=== PATIENT | female | born 1955 | race Caucasian/White ===

== ENCOUNTER → 2016-12-13 | Day surgery (SDC) | payer OTHER ==
[~2016-12-13] MED LIST: ACETAMINOPHEN 1000 MG/100 ML VIAL IV ONE; ACETAMINOPHEN/HYDROcodone 325 MG/5 MG TAB ONE; APREPITANT 40 MG CAP ONE; BACITRACIN IM FOR SOLN 50,000 UNIT VIAL ONE; BUPIVACAINE/EPINEPHRINE 0.25% 50 ML VIAL ONE; GENTAMICIN SULFATE 80 MG/2 ML VIAL ONE; LACTATED RINGER'S 1000 ML INJ 1,000 ML ONE; LIDOCAINE 1%/EPINEPHrine 1:100,000 SOLN 20 ML VIAL ONE; MIDAZOLAM HCL 2 MG/2 ML VIAL ONE; ONDANSETRON HCL 4 MG/2 ML VIAL IV PUSH ONE; PROPOFOL 200 MG/20 ML AMP IV ONE; SODIUM CHLORIDE 0.9% 20 ML VIAL ONE; ceFAZolin INJ 1,000 MG VIAL ONE
--- NOTE | 2016-12-13 09:42 | TN ---
cc: BALDEV BALLARD M.D. DATE OF SURGERY: 12/13/2016 PREOPERATIVE DIAGNOSIS Bilateral breast ptosis and facial aging. PROCEDURE Injection of one syringe of Voluma in the mid-lower face and bilateral circumvertical and horizontal mastopexy. SURGEON Baldev Ballard MD ANESTHESIA LMA general. Also utilized a total of 30 ccs of 1% lidocaine with epinephrine. ESTIMATED BLOOD LOSS Minimal. COMPLICATIONS None. PROCEDURE She was properly consented, marked, anesthetized. The skin was sterilized with Betadine solution and sterile draping applied. The markings were as follows, the NAC was set at 20-1/2 cm from sternal notch, 38 mm areolar diameter. I proceeded and performed the proper injection of the local anesthesia, 1% lidocaine with epinephrine. The skin was sterilized with Betadine solution and sterile draping applied. Before that I applied 1 cc of Voluma on the marionette lines, nasolabial folds and cheek areas. With this I sat the patient up and performed a tailor tack technique finding indeed that the areas of the excessive skin, was properly marked, the viviana were removed. The skin was de-epithelialized and a vertical and horizontal component was closed utilizing 2-0 Monocryl suture and dermis and subcu. Then the NAC was set at the new anatomical position utilizing a pinwheel technique utilizing a 2-0 PTFE suture along with 2-0 Quill. Prineo Dermabond was utilized as a tissue glue/mesh. Good viability of tissue was noted at the end of the case. The patient was awakened, extubated in the operating room. Absorbent dressings were applied thereafter. No complication appreciated. The patient tolerated the procedure fairly well. MD MARCIAL Spencer/GRIFFIN /9:00 AM /9:22 AM
== END | disposition home or self-care (01) ==
LOC: ESDC 06:06
PROVIDERS: ATTEND Plastic Surgery
DX: Z41.1 Encounter for cosmetic surgery (principal)
CPT/HCPCS: 00402; 19316; J0131; J0690; J1580; J2250; J2405; J3010; J7120; J8501